=== PATIENT | male | born 1940 | race Caucasian/White ===

== ENCOUNTER 2022-05-17 13:19 | Outpatient (CLI) | payer OTHER, SELFPAY ==
--- NOTE | 2022-05-17 13:30 | USCV_ITS ---
Jaxon Orozco Age: 81 Gender: M : 1940 Exam Date: 05/17/2022 13:45 Ordering Phys: Brandy Iqbal MD Technologist: DEB Exam Location: [facility] [place] Indication: Painful leg with higher D-Dimer HISTORY: Painful Rt Leg PROCEDURES: Venous duplex imaging was performed in only the right lower extremity. The following venous structures were evaluated: common femoral vein, profunda vein, proximal portion of the greater saphenous vein, superficial femoral vein, and the popliteal vein. In addition, the posterior tibial and peroneal trunk were evaluated. Serial compression, augmentation maneuvers, and spectral Doppler flow evaluation were performed. FINDINGS: Normal 2-D Doppler and augmentation and compressibility throughout the lower extremity venous structures. Additional imaging through the proximal calf veins also reveals no thrombus. Limited evaluation of the greater saphenous vein is patent with no thrombus.. Mayen's cyst Rt. Pop fossa CONCLUSIONS No evidence of right lower extremity DVT. Popliteal cyst 3.7 x 2.1cm Jemal Damon MD (Electronically Signed) Final Date: 17 May 2022 17:36 S
== END 2022-05-17 13:20 | disposition home or self-care (01) ==
LOC: RAD 13:21
PROVIDERS: Visit Provider Family Medicine
DX: M79.604 Pain in right leg (principal)
CPT/HCPCS: 93971

== ENCOUNTER → 2023-06-19 08:56 | Outpatient (BNVA) | payer OTHER, SELFPAY | PROVIDERS: Referring Provider Family Medicine; Visit Provider Specialist | DX: M25.552 Pain in left hip (principal); M89.8X8 Other specified disorders of bone, other site | CPT/HCPCS: 73501; 73502; 99204 ==